=== PATIENT | male | born 1960 | race Hispanic/Latino ===

== ENCOUNTER 2021-01-15 09:02 | Outpatient (CLI) | payer OTHER | END 2021-01-15 09:03 | disposition home or self-care (01) | LOC: CSHCT 09:02 | PROVIDERS: ATTEND Urology | DX: C61 Malignant neoplasm of prostate (principal); N40.1 Benign prostatic hyperplasia with lower urinary tract symptoms; R91.8 Other nonspecific abnormal finding of lung field; N32.89 Other specified disorders of bladder | CPT/HCPCS: 74176 ==

== ENCOUNTER 2021-01-30 09:50 | Outpatient (CLI) | payer OTHER | END 2021-01-30 09:51 | disposition home or self-care (01) | LOC: CSHCT 09:50 | PROVIDERS: ATTEND Urology | DX: R31.0 Gross hematuria (principal); R91.8 Other nonspecific abnormal finding of lung field; N40.0 Benign prostatic hyperplasia without lower urinary tract symptoms; K76.0 Fatty (change of) liver, not elsewhere classified | CPT/HCPCS: 71260; 74178 ==